=== PATIENT | male | born 1970 | race Caucasian/White ===

== ENCOUNTER 2017-02-23 12:38 | Emergency (ER) | payer BC ==
[~2017-02-23] VITALS: Ht 172.7 cm; Wt 83.5 kg
[2017-02-23 12:41] VITALS: Ht 172.7 cm; Wt 83.5 kg
[2017-02-23] MEDS ORDERED: CLOT60SP OTIC (14:16)
[2017-02-23] MEDS ORDERED: IBUP800T25 PO (14:24)
--- NOTE | 2017-02-23 14:24 | ERD ---
ER Documentation Chief Complaint Chief Complaint bilateral ear pain x 2 weeks HPI 46-year-old male complaining of bilateral ear pain 2 weeks. The pain has become gradually worse. Patient stated that ear pain initially occurred on the right ear, it is also worse on the right currently. Patient reports slight sticky drainage on the right ear yesterday. He also reports tinnitus bilaterally. Denies fever or chills. Denies foreign body in the right ear. Denies trauma. Denies swimming. Denies history of diabetes or other illness. Denies recent antibiotics use. ROS All systems reviewed and are negative except as per history of present illness. Medications Home Meds Active Scripts Ibuprofen* (Motrin*) 800 Mg Tab, 800 MG PO Q6H Y for PAIN AND OR ELEVATED TEMP, #30 TAB Prov:DANIELA MCKEON NP 02/23/17 Clotrimazole (FUNGI CURE) 60 Ml [place], 60 ML OTIC BID for 14 Days, #5 DROP Apply to right ear. Dispense with dropper. Prov:DANIELA MCKEON NP 02/23/17 Allergies Allergies: Coded Allergies: No Known Allergy (Unverified , 02/23/17) PMhx/Soc Medical and Surgical Hx: pt denies Medical Hx Physical Exam Vitals Vital Signs Date Time Temp Pulse Resp B/P Pulse Ox O2 Delivery O2 Flow Rate FiO2 02/23/17 12:41 99.0 67 18 165/105 98 Physical Exam General: Well-developed, well-nourished, conscious and coherent, in no distress Skin: Warm and dry without rash, good texture and turgor Head: Normocephalic without evidence of trauma Eyes: Sclera and conjunctivae normal; pupils equal, round, and reactive to light; extraocular movements are intact Ears: Left canal patent, tympanic membrane are clear. Fungal growth noted in the right ear canal surrounding a small cluster of earwax against the tympanic membrane, ear canal erythematous. No tragal or auricular tenderness bilaterally. Chest: Normal AP diameter. Good expansion without retractions. Nontender. Lungs are clear to auscultate bilaterally with good tidal volume Heart: Regular rate and rhythm. No murmur, rub, or gallops heard Extremities: Full range of motion. Good strength bilaterally. No clubbing, cyanosis, or edema. Peripheral pulses are intact. Sensation intact Neuro: Alert and oriented 4, GCS 15. Cranial nerves grossly intact. Motor and sensory exams nonfocal. Moves all extremities. Speech clear. Gait normal Procedures/MDM Procedure note: Ear irrigation Right ear irrigated with normal saline. The cerumen with surrounding fungal growth was removed. Tympanic membrane normal. Patient tolerated procedure well. Well-appearing 46-year-old male presents the ED with otomycosis of the right ear. The fungal growth along with his cerumen was removed from the affected ear. Patient will be given prescription of clotrimazole solution to apply otically twice daily 14 days. Patient advised to follow-up with PCP for blood glucose check, and ENT referral. Patient appears well, stable for discharge and outpatient management. Medical decision making shared with patient and family. Education provided to patient and family. Patient and family expressed understanding of the plan. Medications on discharge: Tramadol. Follow-up: Primary care provider in 2-3 days or return to ED if worse. Disclaimer: Inadvertent spelling and grammatical errors are likely due to EHR/ dictation software use and do not reflect on the overall quality of patient care. Also, please note that the electronic time recorded on this note does not necessarily reflect the actual time of the patient encounter. Departure Diagnosis: Primary Impression: Fungal otitis externa Condition: Stable Patient Instructions: External Ear Infection (Adult) [facility] Usted se tong hecho un examen mdico de control que le indica que no est en jesus alberto condicin que requiera tratamiento urgente en el Departamento de Emergencia. Un estudio ms profundo y el tratamiento de [place] condicin pueden esperar sin ningn riesgo hasta que usted sea atendida/o en el consultorio de [place] mdico o jesus alberto cl kamila. Es responsabilidad suya arreglar jesus alberto nacho para el seguimiento del zena. MANEJO DE CONDICIONES NO URGENTES EN EL FUTURO 1) Si usted tiene un mdico de atencin primaria: Usted debera llamar a [place] mdico de atencin primaria antes de venir al departamento de emergencia. Despus de las horas de consultorio, [place] doctor o [place] asociado/a est disponible por telfono. El mdico o enfermero de arun en el servicio telefnico puede asesorarle por miguel medio para atender el problema, o zena contrario se puede programar jesus alberto nacho. 2) Si usted no tiene un mdico de atencin primaria: Llame al mdico o clnica de referencia que aparece abajo belkys las horas de consultorio para hacer jesus alberto nacho para que le vean. CLINICAS: [place] [phone] [facility] [phone] [facility] [phone] [place] [address] [phone] [place] [address] [phone] [place] [id number] [phone] Additional Instructions: Llame al doctor MAANA y bell jesus alberto NACHO PARA DENTRO DE 2-3 LU.Dgale a la secretaria que nosotros le instruimos hacer esta nacho.Avise o llame si [place] condicin se empeora antes de la nacho. Regresa aqui si peor o no mejor. Have your primary provider refer you to an ENT specialist. DANIELA MCKEON NP Feb 23, 2017 14:24
== END 2017-02-23 14:57 | disposition home or self-care (01) ==
LOC: FTE 12:38
DX: H60.391 Other infective otitis externa, right ear (principal); H61.21 Impacted cerumen, right ear